=== PATIENT | male | born 1965 | race Caucasian/White ===

== ENCOUNTER 2016-10-25 19:48 | Emergency (ER) | payer SELFPAY ==
[~2016-10-25] VITALS: Ht 172.7 cm; Wt 75.0 kg
[2016-10-25 19:48] VITALS: BP 141/81; PULSE 68; RESP 14; TEMP 98.9; O2SAT 94
[~2016-10-25 19:48] MED LIST: Z.0.NO CURRENT MEDS
[2016-10-25 19:50] VITALS: RESP 14; O2SAT 94
[2016-10-25] MEDS ORDERED: SODIUM CHLOR 0.9% 1000 ML INJ 1,000 ML IV ONE (20:15)
--- NOTE | 2016-10-25 20:24 | PD ---
HPI Chief Complaint: "drank too much" Time Seen by Provider: 20:01 Travel History International Travel<30 days: No Contact w/Intl Traveler<30days: No History of Present Illness HPI The patient is a 50 year old male who presents to the [facility] emergency department with a history of reportedly drinking too much alcohol earlier today. He reports that he does normally drink on a daily basis, however he had more than usual. He is unable to quantify exactly how much. He reports that he also thought that he smokes some marijuana, however after smoking the substance he was told that it was K2. Ambulance services were called and on their arrival the patient was noted to be on the ground lying on his side. When they tried to assess the patient the patient would follow-up his hands as if he was point to strike out at them. When the police arrived, the patient became awake and alert and was able to walk to the stretcher on his own. At that time he reported having a bitemporal headache. The patient at this time denies having any pain. The patient's only concern was that he needed to urinate. The patient reports that his past medical history is significant for posttraumatic stress disorder, history of being HIV positive. He denies being on any medications. He reports that he was diagnosed with HIV 20 years ago. I review systems, the patient reports having diarrhea for the last few days. He reports that the stool is brown to green in color. He reports that he's been having the loose stools approximate 3-4 times per day. Otherwise, the patient denies any recent fevers, cough, congestion, neck pain, chest pain, shortness of breath, abdominal pain, vomiting, urinary symptoms, or neurologic symptoms. [facility] Past Medical History Narrative Medical The patient's past medical history is significant for according to the electronic medical record, anxiety and depression, posttraumatic stress disorder , asthma, history of hepatitis C, history of HIV. Asthma: Yes (ADVAIR 6-8HRS) Anxiety: Yes Depression: Yes Diminished Hearing: No Hepatitis: Yes (HEP C, HIV +) Psychiatric: Yes Past Surgical History Narrative Surgical The patient's past surgical history is significant for right knee surgery in 2010. Other Surgery: Yes (RIGHT KNEE SURGERY 2010) Social History Alcohol Use: Yes (daily) Tobacco Use: Yes (6PER DAY) Substance Use: Yes (marijuana, K2) Allergies-Medications (Allergen,Severity, Reaction): Uncoded Allergies: NKDA (Allergy, Unknown, 10/25/16) Reported Meds & Prescriptions Reported Meds & Active Scripts Active No Active Prescriptions or Reported Medications Review of Systems Except as stated in HPI: all other systems reviewed are Neg General / Constitutional: No: Fever Eyes: No: Visual changes HENT: No: Headaches, Neck Stiffness, Neck Pain Cardiovascular: No: Chest Pain or Discomfort Respiratory: No: Shortness of Breath Gastrointestinal: No: Abdominal Pain Genitourinary: No: Dysuria Musculoskeletal: No: Pain Skin: No Rash Neurologic: Positive: Headache, Change in Mentation, No: Weakness, Focal Abnormalities, Slurred Speech, Paresthesia, Sensory Disturbance Psychiatric: Positive: Substance Abuse, No: Depression Endocrine: No: Polydipsia Hematologic/Lymphatic: No: Easy Bruising Physical Exam Narrative General: The patient is a well-developed well-nourished male in no acute distress. Head and Neck exam: Head is normocephalic atraumatic. Eyes: EOMI, pupils are equal round and reactive to light. Nose: Midline septum with pink mucous membranes Mouth: Dentition unremarkable. Moist mucus membranes. Posterior oropharynx is not erythematous. No tonsillar hypertrophy. Uvula midline. Airway patent. Neck: No palpable lymphadenopathy. No nuchal rigidity. No thyromegaly. Cardiovascular: Regular rate and rhythm without murmurs, gallops, or rubs. Lungs: Clear to auscultation bilaterally. No wheezes, rhonchi, or rales. Abdomen: Soft, without tenderness to palpation in all 4 quadrants of the abdomen. No guarding, rebound, or rigidity. Normal bowel sounds are audible. Extremities: No clubbing, cyanosis, or edema. No calf tenderness on palpation. Back: No spinous process tenderness to palpation. No costovertebral angle tenderness to palpation. Neurologic Exam: Cranial nerves 2-12 were intact on exam. Strength is 5/5 in all 4 extremities. No sensory deficits noted. Skin Exam: No rash noted. Intact skin that is warm and dry. Data Data Last Documented VS Vital Signs Date Time Temp Pulse Resp B/P Pulse Ox O2 Delivery O2 Flow Rate FiO2 10/25/16 19:50 68 14 94 Room Air 10/25/16 19:48 98.9 141/81 Orders Electrocardiogram (10/25/16 20:06) Complete Blood Count With Diff (10/25/16 20:06) Comprehensive Metabolic Panel (10/25/16 20:06) Prothrombin Time / Inr (Pt) (10/25/16 20:06) Act Partial Throm Time (Ptt) (10/25/16 20:06) Urinalysis - C+S If Indicated (10/25/16 20:06) Magnesium (Mg) (10/25/16 20:06) Chest, Single Ap (10/25/16 20:06) Ct Brain W/O Iv Contrast(Rout) (10/25/16 20:06) Iv Access Insert/Monitor (10/25/16 20:06) Ecg Monitoring (10/25/16 20:06) Oximetry (10/25/16 20:06) Drug Screen, Random Urine (10/25/16 20:06) Alcohol (Ethanol) (10/25/16 20:06) Salicylates (Aspirin) (10/25/16 20:06) Tylenol (Acetaminophen) (10/25/16 20:06) Sodium Chlor 0.9% 1000 Ml Inj (Ns 1000 M (10/25/16 20:15) Mri Brain W&W/O Contrast (10/25/16 20:58) Gadodiamide Pf Inj (Omniscan Pf Inj) (10/25/16 22:17) Mandatory Outpatient Referral (10/25/16 22:46) Labs Laboratory Tests Test 10/25/16 10/25/16 20:25 20:30 White Blood Count 1.9 TH/MM3 Red Blood Count 4.14 MIL/MM3 Hemoglobin 12.7 GM/DL Hematocrit 36.7 % Mean Corpuscular Volume 88.7 FL Mean Corpuscular Hemoglobin 30.6 PG Mean Corpuscular Hemoglobin 34.5 % Concent Red Cell Distribution Width 14.8 % Platelet Count 66 TH/MM3 Mean Platelet Volume 10.1 FL Neutrophils (%) (Auto) % Lymphocytes (%) (Auto) % Monocytes (%) (Auto) % Eosinophils (%) (Auto) % Basophils (%) (Auto) % Neutrophils # (Auto) TH/MM3 Lymphocytes # (Auto) TH/MM3 Monocytes # (Auto) TH/MM3 Eosinophils # (Auto) TH/MM3 Basophils # (Auto) TH/MM3 CBC Comment AUTO DIFF Differential Total Cells 100 Counted Neutrophils % (Manual) 33 % Lymphocytes % 62 % Monocytes % 5 % Neutrophils # (Manual) 0.6 TH/MM3 Differential Comment FINAL DIFF MANUAL Platelet Estimate LOW Platelet Morphology Comment GIANT Red Cell Morphology Comment NORMAL Prothrombin Time 11.9 SEC Prothromb Time International 1.1 RATIO Ratio Activated Partial 24.7 SEC Thromboplast Time Sodium Level 138 MEQ/L Potassium Level 3.5 MEQ/L Chloride Level 106 MEQ/L Carbon Dioxide Level 23.1 MEQ/L Anion Gap 9 MEQ/L Blood Urea Nitrogen 13 MG/DL Creatinine 0.89 MG/DL Estimat Glomerular Filtration 90 ML/MIN Rate Random Glucose 101 MG/DL Calcium Level 8.4 MG/DL Magnesium Level 2.0 MG/DL Total Bilirubin 0.4 MG/DL Aspartate Amino Transf 131 U/L (AST/SGOT) Alanine Aminotransferase 131 U/L (ALT/SGPT) Alkaline Phosphatase 169 U/L Total Protein 8.7 GM/DL Albumin 2.9 GM/DL Salicylates Level 4.4 MG/DL Acetaminophen Level LESS THAN 2.0 MCG/ML Ethyl Alcohol Level 75 MG/DL Urine Color LIGHT-YELLOW Urine Turbidity CLEAR Urine pH 5.5 Urine Specific Williams 1.003 Urine Protein NEG mg/dL Urine Glucose (UA) NEG mg/dL Urine Ketones NEG mg/dL Urine Occult Blood NEG Urine Nitrite NEG Urine Bilirubin NEG Urine Urobilinogen LESS THAN 2.0 MG/DL Urine Leukocyte Esterase NEG Urine WBC LESS THAN 1 /hpf Microscopic Urinalysis Comment CULT NOT INDICATED Urine Opiates Screen NEG Urine Barbiturates Screen NEG Urine Amphetamines Screen NEG Urine Benzodiazepines Screen NEG Urine Cocaine Screen NEG Urine Cannabinoids Screen NEG [facility] Medical Decision Making Medical Screen Exam Complete: Yes Emergency Medical Condition: Yes Medical Record Reviewed: Yes Interpretation(s) Last Impressions Brain MRI 10/25/162057 Signed Impressions: Service Date/Time: Tuesday, October 25, 2016 22:03 - CONCLUSION: Normal examination. Cale Xiao MD Head CT 10/25/162005 Signed Impressions: Service Date/Time: Tuesday, October 25, 2016 20:41 - CONCLUSION: No acute intracranial abnormality. Mild sinus disease. Lambert Parmar MD Chest X-Ray 10/25/162005 Signed Impressions: Service Date/Time: Tuesday, October 25, 2016 20:23 - CONCLUSION: No evidence of acute cardiopulmonary disease. Lambert Parmar MD Differential Diagnosis Substance intoxication, versus intracranial abnormality, versus metabolic encephalopathy Narrative Course During the course of the patients emergency department visit, the patients history, examination, and differential diagnosis were reviewed with the patient. The patient had IV access obtained and blood work sent for analysis. The patient states on a electronic device monitor with oximetry and blood pressure monitoring. CT scan of the brain was ordered. The patient's EKG on arrival revealed sinus rhythm with a short LA interval, heart rate of 64, QRS duration 81 ms QTC 394 ms, no acute ST segment elevation, T waves are inverted in V1. The patient was initially provided normal saline 1 L IV fluid bolus. The patients laboratory studies were reviewed and remarkable for white count of 1.9, hemoglobin 12.7, platelets 66 with disc differential remarkable for a lymphocytosis is 62, neutrophil number is 0.6. Given the patient's immunocompromised state an MRI of the brain was ordered with and without contrast to evaluate for possible toxoplasmosis or other underlying cause of headache. CMP is remarkable for calcium of 8.4, AST 131, ALT 131, alkaline phosphatase 169, total protein 8.7, albumin 2.9. Suspected the patient's elevated liver enzymes are related to his prior history of hepatitis C, PT 11.9 , INR 1.1, PTT 24.7, urine drug screen is negative, acetaminophen less than 2, salicylate 4.4, alcohol 75, urinalysis is unremarkable. Radiology studies were reviewed and remarkable for a chest x-ray that shows no acute abnormality, CT scan of the brain shows no acute abnormality. The patient continued to rest comfortably during his emergency department observation. The patient continued to have no acute complaints. MRI of the brain was read as normal by the reading radiologist. The patient is instructed regarding the importance of following up with a primary care physician for treatment of his HIV as his white count is suppressed. The patient is given information regarding patient assistance. The patient was also given a mandatory follow-up with the infectious disease doctor as an outpatient for his long-standing history of HIV and now with leukopenia. The patient's leukopenia could also be affected by the patient's history of hepatitis C, thrombocytopenia is most likely related to progression of this. The patient is resting comfortably and feels better, is alert and in no distress. The patients results and examination findings were discussed with the patient. The repeat examination is unremarkable and benign. The history, exam, diagnostic testing, and current condition do not suggest any significant pathology to warrant further testing, continued ED treatment, admission, or surgical evaluation at this point. The vital signs have been stable. The patient does not have uncontrollable pain, intractable vomiting, or other significant symptoms. The patient's condition is stable and appropriate for discharge. The patient will pursue further outpatient evaluation with a primary care physician or other designated or consulting physician as indicated in the discharge instructions. The patient expressed understanding and was agreeable with this plan. Diagnosis Primary Impression: Altered mental state Qualified Code: R40.4 - Transient alteration of awareness Additional Impressions: Polysubstance abuse Leukocytopenia, unspecified Thrombocytopenia Referrals: Roxie Walker MD 3 days Patient Assistance Program Patient Instructions: General Instructions, HIV Infection (ED), Polysubstance Abuse (ED) Med/Other Pt SpecificInfo: No Meds Exist/No RX given Scripts No Active Prescriptions or Reported Meds Disposition: 01 DISCHARGE HOME Condition: Stable Korina Bullock MD Oct 25, 2016 20:24
--- NOTE | 2016-10-25 20:40 | RADRPT ---
EXAM DATE/TIME: 10/25/2016 20:23 [facility] COMPARISON: CHEST PA & LAT, September 27, 2011, 2:26. INDICATIONS : Cough. MEDICAL HISTORY : None. SURGICAL HISTORY : None. ENCOUNTER: Initial ACUITY: 1 day PAIN SCORE: 0/10 LOCATION: Bilateral chest FINDINGS: A single view of the chest demonstrates the lungs to be symmetrically aerated without evidence of mas s, infiltrate or effusion. The cardiomediastinal contours are unremarkable. Osseous structures are intact. CONCLUSION: No evidence of acute cardiopulmonary disease. Lambert Parmar MD on October 25, 2016 at 20:38 Board Certified Radiologist. This report was verified electronically.
[2016-10-25 20:45] LABS: BLOOD, URINE NEG (NEG); GLUCOSE,URINE NEG (NEG); KETONE, URINE NEG (NEG); NITRITE,URINE NEG (NEG); PH, URINE 5.5 (5.0-8.5); URINE COLOR LIGHT-YELLOW (YELLW/STRAW)
[2016-10-25 20:46] LABS: COMMENT (UR) CULT NOT INDICATED; CULTURE IF INDICATED CULT NOT INDICATED
--- NOTE | 2016-10-25 20:51 | RADRPT ---
EXAM DATE/TIME: 10/25/2016 20:41 [facility] COMPARISON: No previous studies available for comparison. INDICATIONS : Headache. RADIATION DOSE: 38.01 CTDIvol (mGy) MEDICAL HISTORY : HIV. Hepatitis C. SURGICAL HISTORY : None. ENCOUNTER: Initial ACUITY: 1 day PAIN SCALE: 9/10 LOCATION: cranial TECHNIQUE: Multiple contiguous axial images were obtained of the head. Using automated exposure control and adj ustment of the mA and/or kV according to patient size, radiation dose was kept as low as reasonably a chievable to obtain optimal diagnostic quality images. FINDINGS: CEREBRUM: The ventricles are normal for age. No evidence of midline shift, mass lesion, hemorrhage or acute in farction. No extra-axial fluid collections are seen. POSTERIOR FOSSA: The cerebellum and brainstem are intact. The 4th ventricle is midline. The cerebellopontine angle i s unremarkable. EXTRACRANIAL: Slight mucoperiosteal thickening seen of the sphenoid air cells. Visualized mastoid air cells are calvin ar. SKULL: The calvaria is intact. No evidence of skull fracture. CONCLUSION: No acute intracranial abnormality. Mild sinus disease. Lambert Parmar MD on October 25, 2016 at 20:48 Board Certified Radiologist. This report was verified electronically.
[2016-10-25 20:52] LABS: HEMATOCRIT 36.7 % (39.0-51.0); MEAN CELL VOLUME 88.7 FL (80.0-100.0); MEAN CORPUSCULAR HEMOGLOBIN 30.6 PG (27.0-34.0); MEAN CORPUSCULAR HGB CONC 34.5 % (32.0-36.0); RED BLOOD COUNT 4.14 MIL/MM3 (4.50-5.90); RED CELL DISTRIBUTION WIDTH 14.8 % (11.6-17.2); WHITE BLOOD COUNT 1.9 TH/MM3 (4.0-11.0)
[2016-10-25 20:52] LABS: AMPHETAMINE, URINE NEG (NEG); BARBITURATES, URINE NEG (NEG); COCAINE, URINE NEG (NEG)
[2016-10-25 20:53] LABS: HEMO FLAGS AUTO DIFF
[2016-10-25 20:54] LABS: PLATELET COUNT 66 TH/MM3 (150-450)
[2016-10-25 20:56] LABS: ANION GAP 9 MEQ/L (5-15)
[2016-10-25 20:57] LABS: APTT (PATIENT) 24.7 SEC (24.3-30.1); INTERNATIONAL NORMALIZED RATIO 1.1 RATIO; PROTHROMBIN TIME - PATIENT 11.9 SEC (9.8-11.6)
[2016-10-25 20:59] LABS: ALKALINE PHOSPHATASE 169 U/L (45-117); ALT (GPT) 131 U/L (12-78); AST (GOT) 131 U/L (15-37); BICARBONATE 23.1 MEQ/L (21.0-32.0); BLOOD UREA NITROGEN 13 MG/DL (7-18); CHLORIDE 106 MEQ/L (98-107); GLOMERULAR FILTRATION RATE 90 ML/MIN (>89); POTASSIUM 3.5 MEQ/L (3.5-5.1); SODIUM (NA) 138 MEQ/L (136-145); TOTAL BILIRUBIN ADULT 0.4 MG/DL (0.2-1.0)
[2016-10-25 21:03] LABS: ACETAMINOPHEN LESS THAN 2.0 MCG/ML (10.0-30.0)
[2016-10-25 21:14] LABS: NEUTROPHIL # MANUAL DIFF 0.6 TH/MM3 (1.8-7.7); PLATELET ESTIMATE SMEAR LOW (NORMAL); PLATELET MORPHOLOGY GIANT (NORMAL); POLYS (SEG NEUTROPHILS) 33 % (16-70); SCAN/DIFF FINAL DIFF MANUAL; WBC DIFF SAMPLE 100
[2016-10-25] MEDS ORDERED: GADODIAMIDE PF 287 MG/ML 5 ML VIAL (for RAD MRI) IV ONE (22:17)
--- NOTE | 2016-10-25 22:54 | RADRPT ---
EXAM DATE/TIME: 10/25/2016 22:03 [facility] COMPARISON: CT BRAIN W/O CONTRAST, October 25, 2016, 20:41. INDICATIONS : Cephalgia. CONTRAST: 15 cc Omniscan (gadodiamide) IV MEDICAL HISTORY : HIV. Hepatitis C. SURGICAL HISTORY : Cholecystectomy. Knee. ENCOUNTER: Subsequent ACUITY: 1 day PAIN SCORE: 3/10 LOCATION: cranial TECHNIQUE: Multiplanar, multisequence MRI of the brain was performed both prior to and following the administrat ion of paramagnetic contrast. FINDINGS: CEREBRUM: The ventricles are normal for age. No evidence of midline shift, mass lesion, hemorrhage or acute in farction. No extraaxial fluid collections are seen. The pituitary gland and suprasellar cistern are normal in configuration. WHITE MATTER: No significant signal abnormalities are seen in the white matter. POSTERIOR FOSSA: The cerebellum and brainstem are intact. The 4th ventricle is midline. The cerebellopontine angle is unremarkable. The cerebellar tonsils are normal in position. DIFFUSION IMAGING: No focal areas of restricted diffusion are seen. No evidence of acute infarction. EXTRACRANIAL: The visualized portions of the orbits and paranasal sinuses are unremarkable. POST-CONTRAST: No abnormal areas of parenchymal or dural enhancement. No evidence of blood-brain barrier breakdown. CONCLUSION: Normal examination. Cale Xiao MD on October 25, 2016 at 22:51 Board Certified Radiologist. This report was verified electronically.
== END 2016-10-26 02:06 | disposition home or self-care (01) ==
LOC: NEPC 19:48
DX: R41.82 Altered mental status, unspecified (principal); F19.10 Other psychoactive substance abuse, uncomplicated; D72.819 Decreased white blood cell count, unspecified; D69.6 Thrombocytopenia, unspecified; R51 Headache; F17.210 Nicotine dependence, cigarettes, uncomplicated
CPT/HCPCS: 70450; 70553; 71010; 80053; 80307; 81001; 83735; 85007; 85027; 85610; 85730; 96360; 99285; A9579; J7030